=== PATIENT | male | born 1965 | race Caucasian/White ===

== ENCOUNTER → 2017-04-07 | Outpatient (CLI) | payer OTHER ==
--- NOTE | ~2017-04-07 | US77 ---
[facility] Service of [facility] RADIOLOGY TEXT RESULTS PATIENT: MARICRUZ BYDR LOCATION: [facility] : 65 UNIT #: [id number] AGE: [address]: Chacorta Dao MD SEX: M ORDER DR: [id number] [facility] [address] [place], [place] [address] [id number] O MR#: [id number] Acc #: [id number] NAME: MARICRUZ BYRD : 1965 SEX: M STUDY DATE/TIME: 04/07/2017 14:43 UNIT: [facility] ROOM: STUDY DESCRIPTION: US Kidney Bilateral Complete Attending Physician: Chacorta Dao M.D. Referring Physician: Chacorta Dao M.D. Ordering Physician: Chacorta Dao M.D. Primary Care Physician: Francis Sweeney M.D. MEDICAL IMAGING REPORT This report is preliminary unless electronic signature is present EXAM Renal ultrasound bilateral, 04/07/2017 HISTORY Followup bilateral kidney stones with prior lithotripsy. FINDINGS The right kidney measures 10.5 cm while the left kidney measures 10.3 cm in longitudinal dimensions. There is no evidence of hydronephrosis. There are nonobstructing renal stones bilaterally. Bilateral renal cysts are noted. No solid mass lesions are identified. There is normal renal cortical echogenicity. Images of the bladder are normal. IMPRESSION 1. Nonobstructing renal stones bilaterally. No evidence of hydronephrosis. 2. Bilateral renal cysts. 3. Images of the bladder are normal. Dictated by... Jim Lakhani M.D. THIS IS AN ELECTRONICALLY VERIFIED REPORT Jim Lakhani M.D. at 04/09/2017 7:46 AM REESE/man TD: 04/08/2017 08:56 JOB #: [id number] MEDICAL IMAGING REPORT Page 1 of 1 COPY
== END | disposition home or self-care (01) ==
LOC: CGUS 14:27
DX: N20.0 Calculus of kidney (principal); Q61.02 Congenital multiple renal cysts
CPT/HCPCS: 76770